=== PATIENT | male | born 1965 | race African-American/Black ===

== ENCOUNTER 2017-08-03 17:15 | Inpatient (IN) | payer OTHER ==
[2017-08-03 18:01] VITALS: BMI 23.0
--- NOTE | 2017-08-03 20:32 | HP ---
CIWA Score - CIWA Score Nausea/Vomitin Muscle Tremors: 4-Moderate,w/Arms Extend Anxiety: 4-Mod. Anxious/Guarded Agitation: 4-Moderately Restless Paroxysmal Sweats: 4-Forehead w/Sweat Beads Orientation: 3-Disoriented Date>2 days Tacttile Disturbances: 0-None Auditory Disturbances: 0-None Visual Disturbances: 0-None Headache: 3-Moderate CIWA-Ar Total Score: 25 Admission ROS BHS - HPI Chief Complaint: C/O WITHDRAWAL SX'S. SEEKING DETOX FROM ALCOHOL Allergies/Adverse Reactions: Allergies Allergy/AdvReac Type Severity Reaction Status Date / Time tomato Allergy Intermediate Rash Verified 08/03/17 19:43 No Known Drug Allergies Allergy Verified 08/03/17 19:43 History of Present Illness: 52 Y.O. MALE WITH HX/O POLYSUBSTANCE ABUSE HERE FOR ALCOHOL DETOX. CLIENT IS KNOWN TO THIS PROGRAM. SELF REFERRED. REPORTS LONGEST CLEAN TIME 2 YEARS. REPORTS HX/O BLACKING OUT BUT DENIES O.D., SEIZURES, SI/HI. PMHX: HTN PSYCH: BIPOLAR Exam Limitations: No Limitations - Ebola screening Have you traveled outside of the country in the last 21 days: No (N) Have you had contact with anyone from an Ebola affected area: No Have you been sick,other than usual withdrawal symptoms: No Do you have a fever: No - Review of Systems Constitutional: Chills, Loss of Appetite, Malaise, Night Sweats, Changes in sleep EENT: reports: No Symptoms Reported, Dental Problems Respiratory: reports: No Symptoms reported Cardiac: reports: No Symptoms Reported GI: reports: Diarrhea, Nausea, Poor Appetite, Vomiting, Abdominal cramping : reports: No Symptoms Reported Musculoskeletal: reports: No Symptoms Reported Integumentary: reports: No Symptoms Reported Neuro: reports: No Symptoms reported Endocrine: reports: No Symptoms Reported Hematology: reports: No Symptoms Reported Psychiatric: reports: Anxious, Depressed Other Systems: Reviewed and Negative Patient History - Patient Medical History Hx Anemia: No Hx Asthma: No Hx Chronic Obstructive Pulmonary Disease (COPD): No Hx Cancer: No Hx Cardiac Disorders: No Hx Congestive Heart Failure: No Hx Hypertension: Yes Hx Hypercholesterolemia: No Hx Pacemaker: No HX Cerebrovascular Accident: No Hx Seizures: No Hx Dementia: No Hx Diabetes: No Hx Gastrointestinal Disorders: No Hx Liver Disease: No Hx Genitourinary Disorders: No Hx Sexually Transmitted Disorders: No Hx Renal Disease (ESRD): No Hx Thyroid Disease: No Hx Human Immunodeficiency Virus (HIV): No (negative ) Hx Hepatitis C: No Hx Depression: Yes Hx Suicide Attempt: No Hx Bipolar Disorder: Yes (AND ANXIETY DISORDER) Hx Schizophrenia: No Other Medical History: DENIES - Patient Surgical History Past Surgical History: No Hx Neurologic Surgery: No Hx Cataract Extraction: No Hx Cardiac Surgery: No Hx Lung Surgery: No Hx Breast Surgery: No Hx Breast Biopsy: No Hx Abdominal Surgery: No Hx Appendectomy: No Hx Cholecystectomy: No Hx Genitourinary Surgery: No Hx Section: No Hx Orthopedic Surgery: No Other Surgical History: STITCHES ON BOTH ARMS FROM PUNCHING GLASS AT AGE 11 Anesthesia Reaction: No - PPD History Previous Implant?: Yes Documented Results: Negative w/proof Implanted On Prior [facility] Admission?: Yes Date: 03/26/15 Results: 0 mm PPD to be Administered?: Yes - Smoking Cessation Smoking history: Current every day smoker Have you smoked in the past 12 months: Yes Aproximately how many cigarettes per day: 4 Cigars Per Day: 0 Hx Chewing Tobacco Use: No Initiated information on smoking cessation: Yes 'Breaking Loose' booklet given: 08/03/17 - Substance & Tx. History Hx Alcohol Use: Yes Hx Substance Use: Yes Substance Use Type: Alcohol, Cocaine, Marijuana Hx Substance Use Treatment: Yes ([facility]) - Substances Abused Alcohol Route: Oral Frequency: Daily Amount used: 2 6PACKS BEER Age of first use: 22 Date of Last Use: 08/03/17 Marijuana/Hashish Route: Smoking Frequency: Daily Amount used: $300 Age of first use: 16 Date of Last Use: 08/03/17 Cocaine Route: SNIFF Frequency: Daily Amount used: $100 Age of first use: 18 Date of Last Use: 08/03/17 Family Disease History - Family Disease History Family Disease History: CA: Father, Other: Mother (PSYCH. DISORDER) Admission Physical Exam S - Vital Signs Vital Signs: Vital Signs - 24 hr 08/03/17 17:59 Temperature 96.9 F L Pulse Rate 77 Respiratory 18 Rate Blood Pressure 127/90 - Physical General Appearance: Yes: Appropriately Dressed, Mild Distress, Tremorous, Anxious HEENTM: Yes: EOMI, Normocephalic, Normal Voice, CHUY, Pharynx Normal, Other ( POOR DENTITION) Respiratory: Yes: Chest Non-Tender, Lungs Clear, Normal Breath Sounds, No Respiratory Distress, No Accessory Muscle Use Neck: Yes: No masses,lesions,Nodules, Supple, Trachea in good position Breast: Yes: Breast Exam Deferred Cardiology: Yes: Regular Rhythm, S1, S2, Tachycardia Abdominal: Yes: Normal Bowel Sounds, Non Tender, Flat, Soft Genitourinary: Yes: Burning (C/O) Back: Yes: Normal Inspection Musculoskeletal: Yes: full range of Motion, Gait Steady Extremities: Yes: Normal Capillary Refill, Normal Range of Motion, Non-Tender, Tremors Neurological: Yes: Alert, Disoriented (TO DATE) Integumentary: Yes: Normal Color, Warm, Other (SWEATY) Lymphatic: Yes: Within Normal Limits - Diagnostic (1) HTN (hypertension) Current Visit: Yes Status: Chronic Qualifiers: Hypertension type: essential hypertension Qualified Code(s): I10 - Essential (primary) hypertension (2) Methamphetamine abuse Current Visit: Yes Status: Chronic (3) Bipolar disorder Current Visit: Yes Status: Suspected (4) Alcohol dependence with uncomplicated withdrawal Current Visit: Yes Status: Acute (5) Cannabis dependence Current Visit: Yes Status: Chronic (6) Cocaine dependence Current Visit: Yes Status: Chronic Qualifiers: Substance use status: uncomplicated Qualified Code(s): F14.20 - Cocaine dependence, uncomplicated (7) Nicotine dependence Current Visit: Yes Status: Chronic Qualifiers: Nicotine product type: cigarettes Substance use status: uncomplicated Qualified Code(s): F17.210 - Nicotine dependence, cigarettes, uncomplicated Cleared for Admission [facility] - Detox or Rehab [facility] Level of Care: Medically Managed Detox Regimen/Protocol: Librium Claeared for Rehab Admission: No [facility] Breath Alcohol Content Breath Alcohol Content: 0 Urine Drug Screen - Results Drug Screen Negative: No Urine Drug Screen Results: THC-Marijuana, TOO-Cocaine, AMP-Amphetamines, MET- Methamphetamine
[2017-08-03] MEDS ORDERED: MELATONIN 5 MG TABLETS PO PRN (22:00)
[2017-08-03] MEDS ORDERED: MAGNESIUM HYDROX 2400MG/30ML ORAL SUSPENSION 30 ML CUP PO PRN (22:45)
[2017-08-03] MEDS ORDERED: guaiFENesin/D-METHORPHAN HB 10 ML UNIT-DOSE CUPS PO PRN (22:45)
[2017-08-03] MEDS ORDERED: LOPERAMIDE HCL 2 MG CAPSULE PO PRN (22:45)
[2017-08-03] MEDS ORDERED: IBUPROFEN 400 MG TABLET (FP) PO PRN (22:45)
[2017-08-03] MEDS ORDERED: NICOTINE POLACRILEX 2 MG GUM BC PRN (22:45)
[2017-08-03] MEDS ORDERED: MAGNESIUM CITRATE 300 ML BOTTLE PO PRN (22:45)
[2017-08-03] MEDS ORDERED: MAG HYDROX/AL HYDROX/SIMETH 30 ML UNIT-DOSE CUP PO PRN (22:45)
[2017-08-03] MEDS ORDERED: ACETAMINOPHEN 325 MG TABLET (FP) PO PRN (22:45)
[2017-08-03] MEDS ORDERED: P-EPHED 60MG/TRIPROLIDI 2.5MG TABLET PO PRN (22:45)
[2017-08-03] MEDS ORDERED: chlordiazePOXIDE HCL 25 MG CAPSULE PO PRN (22:45)
[2017-08-03] MEDS ORDERED: hydrOXYzine PAMOATE 50 MG CAPSULE (FP) PO PRN (22:45)
[2017-08-03] MEDS ORDERED: MENTHOL/PHENOL 1 EACH UD MM PRN (22:45)
[2017-08-03] MEDS: chlordiazePOXIDE HCL 25 MG CAPSULE PO SCH (23:08)
[2017-08-04] MEDS: chlordiazePOXIDE HCL 25 MG CAPSULE PO SCH ×4 (05:09→22:35)
--- NOTE | 2017-08-04 09:20 | CONSULT ---
[facility] Psychiatric Consult - Data Date of interview: 08/04/17 Admission source: [facility] Identifying data: This is 52 years old male, single, homeless, unemployed, on PA , with history of Bipolar Disorder and Psychiatric hospitalizations. Patient reports abusing Cocaine, Alcohol, Cannabis, mAmphetamins and Metamphetamins, Nicotine as well. Currently reports withdrawal symptoms and looking for detox. Substance Abuse History: Urine Drug Screen Results: THC-Marijuana, TOO-Cocaine, AMP-Amphetamines, MET-Methamphetamine. - Smoking Cessation. Smoking history: Current every day smoker. Have you smoked in the past 12 months: Yes. Aproximately how many cigarettes per day: 4. Cigars Per Day: 0. Hx Chewing Tobacco Use: No. Initiated information on smoking cessation: Yes. 'Breaking Loose' booklet given: 08/03/17. - Substance & Tx. History. Hx Alcohol Use: Yes. Hx Substance Use: Yes. Substance Use Type: Alcohol, Cocaine, Marijuana. Hx Substance Use Treatment: Yes ([facility]). - Substances Abused. Alcohol. Route: Oral. Frequency: Daily. Amount used: 2 6PACKS BEER. Age of first use: 22. Date of Last Use: 08/03/17. Marijuana/Hashish. Route: Smoking. Frequency: Daily. Amount used: $300. Age of first use: 16. Date of Last Use: 08/03/17. Cocaine. Route: SNIFF. Frequency: Daily. Amount used: $100. Age of first use: 18. Date of Last Use: 08/03/17 Medical History: HTN Psychiatric History: Patient reports history of Bipolar Disordewr with most recent psychiatric admission on abouit more then 5 years ago, reports currently stable on: Depakote 500mg po qhs, denies suicidal, homicidal history. Physical/Sexual Abuse/Trauma History: Denies Additional Comment: Urine Drug Screen Results: THC-Marijuana, TOO-Cocaine, AMP- Amphetamines, MET-Methamphetamine. Depakote 500mg po qhs Mental Status Exam - Mental Status Exam Alert and Oriented to: Person Cognitive Function: Fair Patient Appearance: Unkempt Mood: Sad Affect: Flat Patient Behavior: Guarded Speech Pattern: Delayed Voice Loudness: Mildly Soft/Quiet Thought Process: Goal Oriented Thought Disorder: Being Controlled Hallucinations: Denies Suicidal Ideation: Denies Homicidal Ideation: Denies Insight/Judgement: Fair Sleep: Difficulty falling asleep Appetite: Fair Muscle strength/Tone: Mild Hypotonicity Gait/Station: Shuffling Additional Comments: Depakote 500mg po qhs Psychiatric Findings - Problem List ([place] 1, 2,3) (1) Drug-induced mood disorder Current Visit: Yes Status: Acute (2) Alcohol dependence with uncomplicated withdrawal Current Visit: Yes Status: Acute (3) Cannabis dependence Current Visit: Yes Status: Chronic (4) Cocaine dependence Current Visit: Yes Status: Chronic Qualifiers: Substance use status: uncomplicated Qualified Code(s): F14.20 - Cocaine dependence, uncomplicated (5) Methamphetamine abuse Current Visit: Yes Status: Chronic (6) Nicotine dependence Current Visit: Yes Status: Chronic Qualifiers: Nicotine product type: cigarettes Substance use status: uncomplicated Qualified Code(s): F17.210 - Nicotine dependence, cigarettes, uncomplicated (7) Bipolar 1 disorder Current Visit: No Status: Acute - Initial Treatment Plan Initial Treatment Plan: Depakote 500mg po qhs. Depakote blood level
[2017-08-04 10:32] LABS: HEMATOCRIT 38.4 % (35.4-49); HEMOGLOBIN 12.7 GM/dL (11.7-16.9); MCH 29.9 pg (25.7-33.7); MEAN CELL VOLUME 90.5 fl (80-96); MEAN PLT VOLUME 8.5 fl (7.5-11.1); PLATELET COUNT 180 K/MM3 (134-434); RBC 4.24 M/mm3 (4.00-5.60); RDW 15.1 % (11.9-15.9); WHITE BLOOD COUNT 3.6 K/mm3 (4.0-10.0)
[2017-08-04 10:38] LABS: ALBUMIN 3.1 g/dl (3.4-5.0); ANION GAP 4 (8-16); BLOOD UREA NITROGEN 20 mg/dL (7-18); CALCIUM 8.2 mg/dL (8.5-10.1); CHLORIDE 107 mmol/L (98-107); CO2 29 mmol/L (21-32); GLUCOSE,RANDOM 100 mg/dL (74-106); POTASSIUM 4.3 mmol/L (3.5-5.1); SODIUM 140 mmol/L (136-145)
[2017-08-04 10:41] LABS: ALK PHOS 62 U/L (45-117); BILIRUBIN,TOTAL 0.3 mg/dL (0.2-1.0); CREATININE 1.3 mg/dL (0.7-1.3); SGOT/AST 24 U/L (15-37); SGPT/ALT 25 U/L (12-78); TOT PROT 6.7 g/dl (6.4-8.2)
[2017-08-04] MEDS: PRENATAL VITAMINS W/ FOLIC ACID TABLET (FP) PO SCH (11:12)
[2017-08-04] MEDS: amLODIPine BESYLATE 10 MG TABLET (FP) PO SCH (11:12)
[2017-08-04] MEDS: NICOTINE 14 MG/24 HOURS TOPICAL PATCH TD SCH (11:12)
[2017-08-04] MEDS: HYDROCHLOROTHIAZIDE 12.5 MG CAPSULE (FP) PO SCH (11:12)
--- NOTE | 2017-08-04 11:18 | PN ---
[facility] CIWA - CIWA Score Nausea/Vomitin-Mild Nausea/No Vomiting Muscle Tremors: 4-Moderate,w/Arms Extend Anxiety: 4-Mod. Anxious/Guarded Agitation: 4-Moderately Restless Paroxysmal Sweats: 1-Minimal Palms Moist Orientation: 1-Uncertain about Date Tacttile Disturbances: 1-Very Mild Itch/Numbness Auditory Disturbances: 0-None Visual Disturbances: 0-None Headache: 2-Mild CIWA-Ar Total Score: 18 BHS Progress Note (SOAP) Subjective: sweat tremor anxiety restlessness trouble sleep at night low energy Objective: 08/04/17 11:24 Vital Signs Temperature 97.1 F L 08/04/17 10:50 Pulse Rate 71 08/04/17 10:50 Respiratory Rate 16 08/04/17 10:50 Blood Pressure 122/76 08/04/17 10:50 O2 Sat by Pulse Oximetry (%) Laboratory Last Values WBC 3.6 K/mm3 (4.0-10.0) L 08/04/17 07:00 RBC 4.24 M/mm3 (4.00-5.60) 08/04/17 07:00 Hgb 12.7 GM/dL (11.7-16.9) 08/04/17 07:00 Hct 38.4 % (35.4-49) 08/04/17 07:00 MCV 90.5 fl (80-96) 08/04/17 07:00 MCH 29.9 pg (25.7-33.7) 08/04/17 07:00 MCHC 33.0 g/dl (32.0-35.9) 08/04/17 07:00 RDW 15.1 % (11.9-15.9) 08/04/17 07:00 Plt Count 180 K/MM3 (134-434) D 08/04/17 07:00 MPV 8.5 fl (7.5-11.1) 08/04/17 07:00 Sodium 140 mmol/L (136-145) 08/04/17 07:00 Potassium 4.3 mmol/L (3.5-5.1) 08/04/17 07:00 Chloride 107 mmol/L (98-107) 08/04/17 07:00 Carbon Dioxide 29 mmol/L (21-32) 08/04/17 07:00 Anion Gap 4 (8-16) L 08/04/17 07:00 BUN 20 mg/dL (7-18) H D 08/04/17 07:00 Creatinine 1.3 mg/dL (0.7-1.3) 08/04/17 07:00 Creat Clearance w eGFR 58.43 (>60) 08/04/17 07:00 Random Glucose 100 mg/dL (74-106) 08/04/17 07:00 Calcium 8.2 mg/dL (8.5-10.1) L 08/04/17 07:00 Total Bilirubin 0.3 mg/dL (0.2-1.0) D 08/04/17 07:00 AST 24 U/L (15-37) 08/04/17 07:00 ALT 25 U/L (12-78) 08/04/17 07:00 Alkaline Phosphatase 62 U/L (45-117) D 08/04/17 07:00 Total Protein 6.7 g/dl (6.4-8.2) 08/04/17 07:00 Albumin 3.1 g/dl (3.4-5.0) L 08/04/17 07:00 lab noted Assessment: 08/04/17 11:24 withdrawal sx Plan: continue detox
--- NOTE | 2017-08-04 11:26 | EKG ---
Test Reason : Blood Pressure : / mmHG Vent. Rate : 069 BPM Atrial Rate : 069 BPM P-R Int : 130 ms QRS Dur : 086 ms QT Int : 412 ms P-R-T Axes : 076 072 027 degrees QTc Int : 441 ms NORMAL SINUS RHYTHM NONSPECIFIC ST ABNORMALITY ABNORMAL ECG NO PREVIOUS ECGS AVAILABLE Confirmed by ANGELIA VASQUEZ MD ([id number]) on 08/04/2017 11:25:49 AM Referred By: Confirmed By:ANGELIA VASQUEZ MD
[2017-08-04] MEDS: THIAMINE HCL 100 MG TABLET (FP) PO SCH (22:35)
[2017-08-04] MEDS: DIVALPROEX SODIUM 500 MG TABLET E.C. PO SCH (22:35)
[2017-08-05] MEDS: chlordiazePOXIDE HCL 25 MG CAPSULE PO SCH ×3 (05:32→17:38)
[2017-08-05] MEDS: HYDROCHLOROTHIAZIDE 12.5 MG CAPSULE (FP) PO SCH (10:26)
[2017-08-05] MEDS: NICOTINE 14 MG/24 HOURS TOPICAL PATCH TD SCH (10:27)
[2017-08-05] MEDS: PRENATAL VITAMINS W/ FOLIC ACID TABLET (FP) PO SCH (10:27)
[2017-08-05] MEDS: amLODIPine BESYLATE 10 MG TABLET (FP) PO SCH (10:27)
--- NOTE | 2017-08-05 11:40 | PN ---
S CIWA - CIWA Score Nausea/Vomitin-Mild Nausea/No Vomiting Muscle Tremors: 4-Moderate,w/Arms Extend Anxiety: 3 Agitation: 3 Paroxysmal Sweats: 1-Minimal Palms Moist Orientation: 0-Oriented Tacttile Disturbances: 1-Very Mild Itch/Numbness Auditory Disturbances: 0-None Visual Disturbances: 0-None Headache: 0-None Present CIWA-Ar Total Score: 13 BHS Progress Note (SOAP) Subjective: tremor sweat trouble sleep at night anxiety restlessness Objective: 08/05/17 11:39 Vital Signs Temperature 98.2 F 08/05/17 09:14 Pulse Rate 90 08/05/17 09:14 Respiratory Rate 18 08/05/17 09:14 Blood Pressure 138/79 08/05/17 09:14 O2 Sat by Pulse Oximetry (%) Laboratory Last Values WBC 3.6 K/mm3 (4.0-10.0) L 08/04/17 07:00 RBC 4.24 M/mm3 (4.00-5.60) 08/04/17 07:00 Hgb 12.7 GM/dL (11.7-16.9) 08/04/17 07:00 Hct 38.4 % (35.4-49) 08/04/17 07:00 MCV 90.5 fl (80-96) 08/04/17 07:00 MCH 29.9 pg (25.7-33.7) 08/04/17 07:00 MCHC 33.0 g/dl (32.0-35.9) 08/04/17 07:00 RDW 15.1 % (11.9-15.9) 08/04/17 07:00 Plt Count 180 K/MM3 (134-434) D 08/04/17 07:00 MPV 8.5 fl (7.5-11.1) 08/04/17 07:00 Sodium 140 mmol/L (136-145) 08/04/17 07:00 Potassium 4.3 mmol/L (3.5-5.1) 08/04/17 07:00 Chloride 107 mmol/L (98-107) 08/04/17 07:00 Carbon Dioxide 29 mmol/L (21-32) 08/04/17 07:00 Anion Gap 4 (8-16) L 06/04/18 07:00 BUN 20 mg/dL (7-18) H D 08/04/17 07:00 Creatinine 1.3 mg/dL (0.7-1.3) 08/04/17 07:00 Creat Clearance w eGFR 58.43 (>60) 08/04/17 07:00 Random Glucose 100 mg/dL (74-106) 08/04/17 07:00 Calcium 8.2 mg/dL (8.5-10.1) L 08/04/17 07:00 Total Bilirubin 0.3 mg/dL (0.2-1.0) D 08/04/17 07:00 AST 24 U/L (15-37) 08/04/17 07:00 ALT 25 U/L (12-78) 08/04/17 07:00 Alkaline Phosphatase 62 U/L (45-117) D 08/04/17 07:00 Total Protein 6.7 g/dl (6.4-8.2) 08/04/17 07:00 Albumin 3.1 g/dl (3.4-5.0) L 08/04/17 07:00 RPR Titer Nonreactive (NONREACTIVE) 08/04/17 07:00 lab noted Assessment: 08/05/17 11:39 withdrawal sx Plan: continue detox
[2017-08-05] MEDS: DIVALPROEX SODIUM 500 MG TABLET E.C. PO SCH (22:30)
[2017-08-05] MEDS: chlordiazePOXIDE 5 MG CAPSULE PO SCH (22:31)
[2017-08-05] MEDS: THIAMINE HCL 100 MG TABLET (FP) PO SCH (22:33)
[2017-08-06] MEDS: chlordiazePOXIDE 5 MG CAPSULE PO SCH ×2 (05:30→10:37)
[2017-08-06] MEDS: PRENATAL VITAMINS W/ FOLIC ACID TABLET (FP) PO SCH (10:21)
[2017-08-06] MEDS: amLODIPine BESYLATE 10 MG TABLET (FP) PO SCH (10:21)
[2017-08-06] MEDS: HYDROCHLOROTHIAZIDE 12.5 MG CAPSULE (FP) PO SCH (10:21)
--- NOTE | 2017-08-06 10:30 | PN ---
BHS Progress Note (SOAP) Subjective: feeling better no tremor less sweat social with peers in day room Objective: 08/06/17 10:31 Vital Signs Temperature 97.8 F 08/06/17 06:27 Pulse Rate 71 08/06/17 06:27 Respiratory Rate 18 08/06/17 06:27 Blood Pressure 135/81 08/06/17 06:27 O2 Sat by Pulse Oximetry (%) Laboratory Last Values WBC 3.6 K/mm3 (4.0-10.0) L 08/04/17 07:00 RBC 4.24 M/mm3 (4.00-5.60) 08/04/17 07:00 Hgb 12.7 GM/dL (11.7-16.9) 08/04/17 07:00 Hct 38.4 % (35.4-49) 08/04/17 07:00 MCV 90.5 fl (80-96) 08/04/17 07:00 MCH 29.9 pg (25.7-33.7) 08/04/17 07:00 MCHC 33.0 g/dl (32.0-35.9) 08/04/17 07:00 RDW 15.1 % (11.9-15.9) 08/04/17 07:00 Plt Count 180 K/MM3 (134-434) D 08/04/17 07:00 MPV 8.5 fl (7.5-11.1) 08/04/17 07:00 Sodium 140 mmol/L (136-145) 08/04/17 07:00 Potassium 4.3 mmol/L (3.5-5.1) 08/04/17 07:00 Chloride 107 mmol/L (98-107) 08/04/17 07:00 Carbon Dioxide 29 mmol/L (21-32) 08/04/17 07:00 Anion Gap 4 (8-16) L 08/04/17 07:00 BUN 20 mg/dL (7-18) H D 08/04/17 07:00 Creatinine 1.3 mg/dL (0.7-1.3) 08/04/17 07:00 Creat Clearance w eGFR 58.43 (>60) 08/04/17 07:00 Random Glucose 100 mg/dL (74-106) 08/04/17 07:00 Calcium 8.2 mg/dL (8.5-10.1) L 08/04/17 07:00 Total Bilirubin 0.3 mg/dL (0.2-1.0) D 08/04/17 07:00 AST 24 U/L (15-37) 08/04/17 07:00 ALT 25 U/L (12-78) 08/04/17 07:00 Alkaline Phosphatase 62 U/L (45-117) D 08/04/17 07:00 Total Protein 6.7 g/dl (6.4-8.2) 08/04/17 07:00 Albumin 3.1 g/dl (3.4-5.0) L 08/04/17 07:00 Valproic Acid < 3.0 ug/ml (50-100) L 08/05/17 08:00 RPR Titer Nonreactive (NONREACTIVE) 08/04/17 07:00 lab noted Assessment: 08/06/17 10:32 mild withdrawal sx Plan: medically supervised detox
[2017-08-06] MEDS: NICOTINE 14 MG/24 HOURS TOPICAL PATCH TD SCH (10:37)
[2017-08-06 10:58] VITALS: BP 118/80; PULSE 77; TEMP 97.9
--- NOTE | 2017-08-06 12:40 | DS ---
[facility] Detox Discharge Summary Admission Date: 08/03/17 Discharge Date: 08/06/17 - History Present History: Alcohol Dependence - Physical Exam Results Vital Signs: Vital Signs Temperature 97.9 F 08/06/17 10:57 Pulse Rate 77 08/06/17 10:57 Respiratory Rate 16 08/06/17 10:57 Blood Pressure 118/80 08/06/17 10:57 O2 Sat by Pulse Oximetry (%) - Treatment Hospital Course: Detox Protocol Followed, Detoxed Safely, Responded well, Discharged Condition Good, Rehab Referral Accepted Patient has Accepted a Rehab Referral [facility]: [facility] - Medication Discharge Medications: Ambulatory Orders Divalproex [Depakote -] 500 mg PO DAILY 08/03/17 Hydrochlorothiazide [Hctz -] 12.5 mg PO DAILY 08/03/17 Divalproex [Depakote -] 500 mg PO HS #30 tablet.ec 08/04/17 Amlodipine Besylate 10 mg PO DAILY #30 tablet 08/06/17 - Diagnosis (1) Alcohol dependence with uncomplicated withdrawal Current Visit: Yes Status: Acute (2) HTN (hypertension) Current Visit: Yes Status: Chronic Qualifiers: Hypertension type: essential hypertension Qualified Code(s): I10 - Essential (primary) hypertension (3) Nicotine dependence Current Visit: Yes Status: Chronic Qualifiers: Nicotine product type: cigarettes Substance use status: in withdrawal Qualified Code(s): F17.213 - Nicotine dependence, cigarettes, with withdrawal (4) Bipolar 1 disorder Current Visit: Yes Status: Suspected - AMA Did Patient Leave Against Medical Advice: No
[2017-08-06] MEDS ORDERED: chlordiazePOXIDE HCL 10 MG CAPSULE PO SCH (23:00)
== END 2017-08-06 12:30 | disposition home or self-care (01) | DRG 774 ==
LOC: YASAS 17:15 → Y6N 20:43
PROVIDERS: ADMIT Surgery; ATTEND Surgery
PROC: HZ2ZZZZ Detoxification Services for Substance Abuse Treatment (ICD-10-PCS; principal; 2017-08-03)
DX: F10.230 Alcohol dependence with withdrawal, uncomplicated (principal); F14.20 Cocaine dependence, uncomplicated; F12.20 Cannabis dependence, uncomplicated; F15.10 Other stimulant abuse, uncomplicated; F17.213 Nicotine dependence, cigarettes, with withdrawal; F31.89 Other bipolar disorder; F19.24 Other psychoactive substance dependence with psychoactive substance-induced mood disorder; I10 Essential (primary) hypertension
CPT/HCPCS: 36415; 80053; 80164; 85027; 86593; 93005; 93010

== ENCOUNTER 2017-10-18 10:41 | Inpatient (IN) | payer OTHER ==
[2017-10-18 11:37] VITALS: BMI 23.0
--- NOTE | 2017-10-18 12:07 | HP ---
CIWA Score - CIWA Score Nausea/Vomitin-Mild Nausea/No Vomiting Muscle Tremors: 4-Moderate,w/Arms Extend Anxiety: 4-Mod. Anxious/Guarded Agitation: 1-Slight > Activity Paroxysmal Sweats: 1-Minimal Palms Moist Orientation: 0-Oriented Tacttile Disturbances: 1-Very Mild Itch/Numbness Auditory Disturbances: 1-Very Mild Visual Disturbances: 1-Very Mild Sensitivity Headache: 1-Very Mild CIWA-Ar Total Score: 15 Admission ROS BHS - HPI Chief Complaint: I want to get my life back on track, stop using, be more responsible Allergies/Adverse Reactions: Allergies Allergy/AdvReac Type Severity Reaction Status Date / Time tomato Allergy Intermediate Rash Verified 10/18/17 11:35 No Known Drug Allergies Allergy Verified 10/18/17 11:35 History of Present Illness: 52 yo gentleman here for detox from alcohol - denies seizures or black outs, one of several admissions for treatment. Also uses cocaine and marijuana. 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 Exam Limitations: Clinical Condition - Ebola screening Have you traveled outside of the country in the last 21 days: No (N) Have you had contact with anyone from an Ebola affected area: No Have you been sick,other than usual withdrawal symptoms: No Do you have a fever: No - Review of Systems Constitutional: Chills, Loss of Appetite, Night Sweats, Changes in sleep, Weakness EENT: reports: No Symptoms Reported Respiratory: reports: No Symptoms reported GI: reports: Nausea, Poor Appetite, Indigestion, Abdominal cramping : reports: Frequency Musculoskeletal: reports: Back Pain, Muscle Pain Integumentary: reports: Dryness Neuro: reports: Headache, Tremors Endocrine: reports: No Symptoms Reported Hematology: reports: No Symptoms Reported Psychiatric: reports: Judgement Intact, Mood/Affect Appropiate, Orientated x3, Anxious Other Systems: Reviewed and Negative Patient History - Patient Medical History Hx Anemia: No Hx Asthma: No Hx Chronic Obstructive Pulmonary Disease (COPD): No Hx Cancer: No Hx Cardiac Disorders: No Hx Congestive Heart Failure: No Hx Hypertension: Yes (NON-COMPLIANT WITH MEDICATIONS) Hx Hypercholesterolemia: No Hx Pacemaker: No HX Cerebrovascular Accident: No Hx Seizures: No Hx Dementia: No Hx Diabetes: No Hx Gastrointestinal Disorders: No Hx Liver Disease: No Hx Genitourinary Disorders: No Hx Sexually Transmitted Disorders: No Hx Renal Disease (ESRD): No Hx Thyroid Disease: No Hx Human Immunodeficiency Virus (HIV): No Hx Hepatitis C: No Hx Depression: Yes Hx Suicide Attempt: No Hx Bipolar Disorder: Yes (hospitalized 20 years ago) Hx Schizophrenia: No - Patient Surgical History Past Surgical History: No Hx Neurologic Surgery: No Hx Cataract Extraction: No Hx Cardiac Surgery: No Hx Lung Surgery: No Hx Breast Surgery: No Hx Breast Biopsy: No Hx Abdominal Surgery: No Hx Appendectomy: No Hx Cholecystectomy: No Hx Genitourinary Surgery: No Hx Section: No Hx Orthopedic Surgery: No Other Surgical History: STITCHES ON BOTH ARMS FROM PUNCHING GLASS AT AGE 11 Anesthesia Reaction: No - PPD History Previous Implant?: Yes Documented Results: Negative w/proof Implanted On Prior [facility] Admission?: Yes Date: 08/05/17 Results: 0 mm PPD to be Administered?: No - Reproductive History Patient is a Female of Child Bearing Age (11 -55 yrs old): No (male) - Smoking Cessation Smoking history: Current every day smoker Have you smoked in the past 12 months: Yes Aproximately how many cigarettes per day: 2 Cigars Per Day: 0 Hx Chewing Tobacco Use: No Initiated information on smoking cessation: Yes 'Breaking Loose' booklet given: 10/18/17 (give on floor) - Substance & Tx. History Hx Alcohol Use: Yes Hx Substance Use: Yes Substance Use Type: Alcohol, Cocaine, Marijuana Hx Substance Use Treatment: Yes (detox, rehab) - Substances Abused Alcohol Route: Oral Frequency: Daily Amount used: one 6 pack of beer (16 ounces), 2 pints of vodka Age of first use: 18 Date of Last Use: 10/17/17 Marijuana/Hashish Route: Smoking Frequency: Daily Amount used: $300 Age of first use: 11 Date of Last Use: 10/18/17 Cocaine Route: Inhalation Frequency: Daily Amount used: $400 Age of first use: 19 Date of Last Use: 10/17/17 Family Disease History - Family Disease History Family Disease History: CA: Father (, ), Other: Father, Mother (living, PSYCH. DISORDER), Brother (three - living - etoh), Sister (three - living) Admission Physical Exam BHS - Vital Signs Vital Signs: Vital Signs - 24 hr 10/18/17 11:34 Temperature 98.1 F Pulse Rate 73 Respiratory 16 Rate Blood Pressure 156/105 - Physical General Appearance: Yes: Nourished, Appropriately Dressed, Moderate Distress, Anxious HEENTM: Yes: EOMI, Hearing grossly Normal, Normocephalic, Normal Voice Respiratory: Yes: Normal Breath Sounds, No Respiratory Distress Neck: Yes: No masses,lesions,Nodules Breast: Yes: Breast Exam Deferred Cardiology: Yes: Regular Rhythm, Regular Rate Abdominal: Yes: Non Tender, Flat Genitourinary: Yes: Frequency Back: Yes: Normal Inspection Musculoskeletal: Yes: full range of Motion, Gait Steady Extremities: Yes: Normal Inspection, Normal Range of Motion, Non-Tender Neurological: Yes: Fully Oriented, Alert, Motor Strength 5/5, Normal Mood/Affect , Normal Response Integumentary: Yes: Normal Color, Dry, Warm, Other (scars both arms) Lymphatic: Yes: Within Normal Limits - Diagnostic (1) Alcohol dependence with uncomplicated withdrawal Current Visit: Yes Status: Acute (2) Cannabis dependence Current Visit: Yes Status: Chronic (3) Cocaine dependence Current Visit: Yes Status: Chronic Qualifiers: Substance use status: uncomplicated Qualified Code(s): F14.20 - Cocaine dependence, uncomplicated (4) HTN (hypertension) Current Visit: Yes Status: Chronic Qualifiers: Hypertension type: essential hypertension Qualified Code(s): I10 - Essential (primary) hypertension (5) Nicotine dependence Current Visit: Yes Status: Chronic Qualifiers: Nicotine product type: cigarettes Substance use status: in withdrawal Qualified Code(s): F17.213 - Nicotine dependence, cigarettes, with withdrawal Cleared for Admission [facility] - Detox or Rehab [facility] Level of Care: Medically Managed Detox Regimen/Protocol: Librium [facility] Breath Alcohol Content Breath Alcohol Content: 0 Urine Drug Screen - Results Urine Drug Screen Results: THC-Marijuana, TOO-Cocaine
[2017-10-18] MEDS ORDERED: IBUPROFEN 400 MG TABLET (FP) PO PRN (12:16)
[2017-10-18] MEDS ORDERED: MAG HYDROX/AL HYDROX/SIMETH 30 ML UNIT-DOSE CUP PO PRN (12:16)
[2017-10-18] MEDS ORDERED: ACETAMINOPHEN 325 MG TABLET (FP) PO PRN (12:16)
[2017-10-18] MEDS ORDERED: hydrOXYzine PAMOATE 25 MG CAPSULE (FP) PO PRN (12:16)
[2017-10-18] MEDS ORDERED: MAGNESIUM CITRATE 300 ML BOTTLE PO PRN (12:16)
[2017-10-18] MEDS ORDERED: P-EPHED 60MG/TRIPROLIDI 2.5MG TABLET PO PRN (12:16)
[2017-10-18] MEDS ORDERED: MAGNESIUM HYDROX 2400MG/30ML ORAL SUSPENSION 30 ML CUP PO PRN (12:16)
[2017-10-18] MEDS ORDERED: guaiFENesin/D-METHORPHAN HB 10 ML UNIT-DOSE CUPS PO PRN (12:16)
[2017-10-18] MEDS ORDERED: MENTHOL/PHENOL 1 EACH UD MM PRN (12:16)
[2017-10-18] MEDS ORDERED: chlordiazePOXIDE HCL 25 MG CAPSULE PO PRN (12:16)
[2017-10-18] MEDS ORDERED: LOPERAMIDE HCL 2 MG CAPSULE PO PRN (12:16)
[2017-10-18] MEDS ORDERED: chlordiazePOXIDE HCL 25 MG CAPSULE PO ONE (12:30)
[2017-10-18] MEDS: amLODIPine BESYLATE 10 MG TABLET (FP) PO SCH (15:07)
[2017-10-18] MEDS: HYDROCHLOROTHIAZIDE 12.5 MG CAPSULE (FP) PO SCH (15:07)
[2017-10-18] MEDS: chlordiazePOXIDE HCL 25 MG CAPSULE PO SCH ×2 (18:11→22:25)
[2017-10-18] MEDS ORDERED: MELATONIN 5 MG TABLETS PO PRN (22:00)
[2017-10-18] MEDS: THIAMINE HCL 100 MG TABLET (FP) PO SCH (22:25)
[2017-10-19] MEDS: chlordiazePOXIDE HCL 25 MG CAPSULE PO SCH ×4 (05:34→22:24)
--- NOTE | 2017-10-19 09:24 | CONSULT ---
[facility] Psychiatric Consult - Data Date of interview: 10/19/17 Admission source: Self-referred Identifying data: 52 y/ male single, unemployed, homeless on public assistance admitted to Detox for abusing ETOH, cocaine, marijuana Substance Abuse History: He has a long history of substance abuse since his teenage years, and numerous past Detox treatments, He experiences withdrawal symptoms, denies black out spells,or seizure disorder. Refer to addiction counselor note for more drug detailed history Medical History: HTN Psychiatric History: Diagnosed with Bipolarity , has had past pyschiatric admissions @ [facility], [facility]. He reports compliance with his medication Depakote and is emotionally stable at this time , denies suicidal or homicidal ideation, no report of mood swings Physical/Sexual Abuse/Trauma History: Denied Mental Status Exam - Mental Status Exam Alert and Oriented to: Place, Person Cognitive Function: Fair Patient Appearance: Unkempt Mood: Apathetic Affect: Appropriate Patient Behavior: Cooperative Speech Pattern: Delayed Voice Loudness: Mildly Soft/Quiet Thought Process: Intact Hallucinations: None Suicidal Ideation: None Homicidal Ideation: None Insight/Judgement: Poor Sleep: Fair Appetite: Good Muscle strength/Tone: Mild Hypotonicity Gait/Station: Normal Psychiatric Findings - Problem List ([place] 1, 2,3) (1) Alcohol dependence with uncomplicated withdrawal Current Visit: Yes Status: Acute (2) Cannabis dependence Current Visit: Yes Status: Chronic (3) Cocaine dependence Current Visit: Yes Status: Chronic Qualifiers: Substance use status: uncomplicated Qualified Code(s): F14.20 - Cocaine dependence, uncomplicated (4) HTN (hypertension) Current Visit: Yes Status: Chronic Qualifiers: Hypertension type: essential hypertension Qualified Code(s): I10 - Essential (primary) hypertension (5) Nicotine dependence Current Visit: Yes Status: Chronic Qualifiers: Nicotine product type: cigarettes Substance use status: in withdrawal Qualified Code(s): F17.213 - Nicotine dependence, cigarettes, with withdrawal (6) Drug-induced mood disorder Current Visit: No Status: Acute (7) Bipolar 1 disorder Current Visit: No Status: Suspected - Initial Treatment Plan Initial Treatment Plan: Continue Detox protocol. Psychoeducation. Monitor response. Depakote 500 mg po q hs. Blood VPA level
[2017-10-19 10:18] LABS: HEMATOCRIT 41.8 % (35.4-49); HEMOGLOBIN 13.9 GM/dL (11.7-16.9); MCH 29.6 pg (25.7-33.7); MCHC 33.2 g/dl (32.0-35.9); MEAN PLT VOLUME 8.9 fl (7.5-11.1); PLATELET COUNT 196 K/MM3 (134-434); RBC 4.69 M/mm3 (4.00-5.60); RDW 14.7 % (11.9-15.9); WHITE BLOOD COUNT 4.5 K/mm3 (4.0-10.0)
[2017-10-19 10:27] LABS: URINE APPEARANCE CLEAR; URINE BILIRUBIN NEGATIVE (<2.0 mg/dL); URINE COLOR YELLOW; URINE GLUCOSE (UA) NEGATIVE (NEGATIVE); URINE KETONE NEGATIVE (NEGATIVE); URINE LEUK ESTERASE NEGATIVE (NEGATIVE); URINE NITRITE NEGATIVE (NEGATIVE); URINE PROTEIN NEGATIVE (NEGATIVE)
[2017-10-19 10:28] LABS: CHLORIDE 102 mmol/L (98-107); POTASSIUM 3.8 mmol/L (3.5-5.1); SODIUM 141 mmol/L (136-145)
[2017-10-19 10:36] LABS: ALBUMIN 3.6 g/dl (3.4-5.0); ALK PHOS 60 U/L (45-117); ANION GAP 10 (8-16); BILIRUBIN,TOTAL 0.4 mg/dL (0.2-1.0); BLOOD UREA NITROGEN 14 mg/dL (7-18); CALCIUM 8.9 mg/dL (8.5-10.1); CO2 29 mmol/L (21-32); CREATININE 1.1 mg/dL (0.7-1.3); GLUCOSE,RANDOM 84 mg/dL (74-106); SGOT/AST 19 U/L (15-37); SGPT/ALT 31 U/L (12-78); TOT PROT 7.5 g/dl (6.4-8.2)
[2017-10-19] MEDS: amLODIPine BESYLATE 10 MG TABLET (FP) PO SCH (10:42)
[2017-10-19] MEDS: PRENATAL VITAMINS W/ FOLIC ACID TABLET (FP) PO SCH (10:42)
[2017-10-19] MEDS: HYDROCHLOROTHIAZIDE 12.5 MG CAPSULE (FP) PO SCH (10:42)
--- NOTE | 2017-10-19 12:56 | PN ---
S CIWA - CIWA Score Nausea/Vomitin Muscle Tremors: 4-Moderate,w/Arms Extend Anxiety: 4-Mod. Anxious/Guarded Agitation: 4-Moderately Restless Paroxysmal Sweats: 3 Orientation: 0-Oriented Tacttile Disturbances: 0-None Auditory Disturbances: 0-None Visual Disturbances: 0-None Headache: 0-None Present CIWA-Ar Total Score: 18 BHS Progress Note (SOAP) Subjective: Tremor, nausea, anxiety Objective: 10/19/17 12:54 Last Vital Signs Temp Pulse Resp BP Pulse Ox 98.3 F 72 18 147/83 10/19/17 09:25 10/19/17 09:25 10/19/17 09:25 10/19/17 09:25 Laboratory Tests 10/19/17 10/19/17 10/19/17 07:20 07:20 07:40 WBC 4.5 RBC 4.69 Hgb 13.9 Hct 41.8 MCV 89.0 MCH 29.6 MCHC 33.2 RDW 14.7 Plt Count 196 MPV 8.9 Sodium 141 Potassium 3.8 Chloride 102 Carbon Dioxide 29 Anion Gap 10 BUN 14 Creatinine 1.1 Creat Clearance w eGFR > 60 Random Glucose 84 Calcium 8.9 Total Bilirubin 0.4 AST 19 D ALT 31 D Alkaline Phosphatase 60 Total Protein 7.5 Albumin 3.6 Urine Color Yellow Urine Appearance Clear Urine pH 6.0 Ur Specific [place] 1.017 Urine Protein Negative Urine Glucose (UA) Negative Urine Ketones Negative Urine Blood Negative Urine Nitrite Negative Urine Bilirubin Negative Urine Urobilinogen 2.0 Ur Leukocyte Esterase Negative Labs reviewed Assessment: 10/19/17 12:55 Withdrawal symptoms Plan: Continue detox Encouraged PO water hydration
--- NOTE | 2017-10-19 19:23 | EKG ---
Test Reason : Blood Pressure : / mmHG Vent. Rate : 078 BPM Atrial Rate : 078 BPM P-R Int : 114 ms QRS Dur : 096 ms QT Int : 392 ms P-R-T Axes : 067 060 048 degrees QTc Int : 446 ms NORMAL SINUS RHYTHM NORMAL ECG Confirmed by MD RAINER, KAREN ([id number]) on 10/19/2017 7:23:06 PM Referred By: Confirmed By:KAREN SPEAR MD
[2017-10-19] MEDS ORDERED: DIVALPROEX SODIUM 500 MG TABLET E.C. PO SCH (22:00)
[2017-10-19] MEDS: THIAMINE HCL 100 MG TABLET (FP) PO SCH (22:24)
[2017-10-20] MEDS: chlordiazePOXIDE HCL 25 MG CAPSULE PO SCH ×2 (06:42→10:24)
[2017-10-20 09:27] VITALS: BP 148/91; PULSE 73; TEMP 98.6
[2017-10-20] MEDS: amLODIPine BESYLATE 10 MG TABLET (FP) PO SCH (10:23)
[2017-10-20] MEDS: PRENATAL VITAMINS W/ FOLIC ACID TABLET (FP) PO SCH (10:23)
[2017-10-20] MEDS: HYDROCHLOROTHIAZIDE 12.5 MG CAPSULE (FP) PO SCH (10:24)
--- NOTE | 2017-10-20 10:40 | PN ---
[facility] Progress Note Note: PT STATES HE WANTS HIS NORVASC ANY TIME HE WANTS AND DOES NOT WANT TO FOLLOW A SCHEDULED ROUTINE. EXPLAINED TO PT THE PROTOCOL FOR ADMINISTRATION OF NORVASC BUT HE IS UNRECEPTIVE. PT DECLINED TO CONTINUE WITH DETOX STATING "I HAVE MADE UP MY MIND TO LEAVE NOW. AND I DON'T WANT TO TAKE LIBRIUM, IT MAKES MY BLOOD PRESSURE GO UP. I DON'T WANT TO BE HERE. I DON'T WANT TO SPEAK TO ANY ONE". PT WAS LATER SPOKEN TO BY SUPERVISOR [employer] CAROL HARLEY AND COUNSELOR DEBORAH ANDRADE WELL THIS REPORTS ANALYST AND HIS NURSE, TERRA HELMS WITH UNSUCCESSFUL OUTCOME. PT REFUSED TO BE SPOKEN TO BY COUNSELOR RE:AFTERCARE. PT IS ALERT O X 3. Vital Signs - 24 hr 10/19/17 10/19/17 10/19/17 13:59 17:41 22:56 Temperature 99.1 F 98.1 F 98.7 F Pulse Rate 87 86 90 Respiratory 18 18 18 Rate Blood Pressure 143/93 133/85 129/77 10/20/17 10/20/17 10/20/17 00:30 03:30 06:01 Temperature 98.4 F Pulse Rate 75 Respiratory 18 18 18 Rate Blood Pressure 128/81 10/20/17 09:26 Temperature 98.6 F Pulse Rate 73 Respiratory 20 Rate Blood Pressure 148/91 Laboratory Tests 10/19/17 10/19/17 10/19/17 07:20 07:20 07:20 WBC 4.5 RBC 4.69 Hgb 13.9 Hct 41.8 MCV 89.0 MCH 29.6 MCHC 33.2 RDW 14.7 Plt Count 196 MPV 8.9 Sodium 141 Potassium 3.8 Chloride 102 Carbon Dioxide 29 Anion Gap 10 BUN 14 Creatinine 1.1 Creat Clearance w eGFR > 60 Random Glucose 84 Calcium 8.9 Total Bilirubin 0.4 AST 19 D ALT 31 D Alkaline Phosphatase 60 Total Protein 7.5 Albumin 3.6 Urine Color Urine Appearance Urine pH Ur Specific [place] Urine Protein Urine Glucose (UA) Urine Ketones Urine Blood Urine Nitrite Urine Bilirubin Urine Urobilinogen Ur Leukocyte Esterase RPR Titer HIV 1&2 Antibody Screen Negative HIV P24 Antigen Negative 10/19/17 10/19/17 07:20 07:40 WBC RBC Hgb Hct MCV MCH MCHC RDW Plt Count MPV Sodium Potassium Chloride Carbon Dioxide Anion Gap BUN Creatinine Creat Clearance w eGFR Random Glucose Calcium Total Bilirubin AST ALT Alkaline Phosphatase Total Protein Albumin Urine Color Yellow Urine Appearance Clear Urine pH 6.0 Ur Specific [place] 1.017 Urine Protein Negative Urine Glucose (UA) Negative Urine Ketones Negative Urine Blood Negative Urine Nitrite Negative Urine Bilirubin Negative Urine Urobilinogen 2.0 Ur Leukocyte Esterase Negative RPR Titer Nonreactive HIV 1&2 Antibody Screen HIV P24 Antigen NAD PLAN:PT LEFT AMA
--- NOTE | 2017-10-20 10:45 | DS ---
[facility] Detox Discharge Summary Admission Date: 10/18/17 Discharge Date: 10/20/17 - History Present History: Alcohol Dependence Additional Comments: PT DECLINED TO CONTINUE WITH DETOX AND LEFT AMA. DECLINED TO SPEAK TO PROVIDER RE: HIS PRIMARY CARE INFORMATION. PT STATES HAS OWN MEDS. Pertinent Past History: PLEASE SEE DX BELOW - Physical Exam Results Vital Signs: Vital Signs Temperature 98.6 F 10/20/17 09:26 Pulse Rate 73 10/20/17 09:26 Respiratory Rate 20 10/20/17 09:26 Blood Pressure 148/91 10/20/17 09:26 O2 Sat by Pulse Oximetry (%) Pertinent Admission Physical Exam Findings: WITHDRAWAL SX Laboratory Tests 10/19/17 10/19/17 10/19/17 07:20 07:20 07:20 WBC 4.5 RBC 4.69 Hgb 13.9 Hct 41.8 MCV 89.0 MCH 29.6 MCHC 33.2 RDW 14.7 Plt Count 196 MPV 8.9 Sodium 141 Potassium 3.8 Chloride 102 Carbon Dioxide 29 Anion Gap 10 BUN 14 Creatinine 1.1 Creat Clearance w eGFR > 60 Random Glucose 84 Calcium 8.9 Total Bilirubin 0.4 AST 19 D ALT 31 D Alkaline Phosphatase 60 Total Protein 7.5 Albumin 3.6 Urine Color Urine Appearance Urine pH Ur Specific [place] Urine Protein Urine Glucose (UA) Urine Ketones Urine Blood Urine Nitrite Urine Bilirubin Urine Urobilinogen Ur Leukocyte Esterase RPR Titer HIV 1&2 Antibody Screen Negative HIV P24 Antigen Negative 10/19/17 10/19/17 07:20 07:40 WBC RBC Hgb Hct MCV MCH MCHC RDW Plt Count MPV Sodium Potassium Chloride Carbon Dioxide Anion Gap BUN Creatinine Creat Clearance w eGFR Random Glucose Calcium Total Bilirubin AST ALT Alkaline Phosphatase Total Protein Albumin Urine Color Yellow Urine Appearance Clear Urine pH 6.0 Ur Specific [place] 1.017 Urine Protein Negative Urine Glucose (UA) Negative Urine Ketones Negative Urine Blood Negative Urine Nitrite Negative Urine Bilirubin Negative Urine Urobilinogen 2.0 Ur Leukocyte Esterase Negative RPR Titer Nonreactive HIV 1&2 Antibody Screen HIV P24 Antigen - Treatment Hospital Course: Discharged Condition Good - Medication Discharge Medications: Ambulatory Orders Hydrochlorothiazide [Hctz -] 12.5 mg PO DAILY 08/03/17 Divalproex [Depakote -] 500 mg PO HS #30 tablet.ec 08/04/17 Amlodipine Besylate 10 mg PO DAILY #30 tablet 08/06/17 - AMA Did Patient Leave Against Medical Advice: Yes (AMRomi)
[2017-10-20] MEDS ORDERED: chlordiazePOXIDE 5 MG CAPSULE PO SCH (17:00)
[2017-10-21] MEDS ORDERED: chlordiazePOXIDE HCL 10 MG CAPSULE PO SCH (17:00)
== END 2017-10-20 10:30 | disposition left against medical advice (07) | DRG 770 ==
LOC: YASAS 10:41 → Y3N 12:17
PROVIDERS: ADMIT Surgery; ATTEND Surgery
PROC: HZ2ZZZZ Detoxification Services for Substance Abuse Treatment (ICD-10-PCS; principal; 2017-10-18)
DX: F10.230 Alcohol dependence with withdrawal, uncomplicated (principal); F14.20 Cocaine dependence, uncomplicated; F12.20 Cannabis dependence, uncomplicated; F17.213 Nicotine dependence, cigarettes, with withdrawal; F19.24 Other psychoactive substance dependence with psychoactive substance-induced mood disorder; F31.89 Other bipolar disorder; I10 Essential (primary) hypertension; Z91.14 Patient's other noncompliance with medication regimen
CPT/HCPCS: 36415; 80053; 81003; 85027; 86593; 87389; 93005; 93010

== ENCOUNTER 2017-11-25 13:10 | Inpatient (IN) | payer OTHER ==
[2017-11-25 13:49] VITALS: BMI 21.9
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
[2017-11-25] MEDS ORDERED: MENTHOL/PHENOL 1 EACH UD MM PRN (14:55)
[2017-11-25] MEDS ORDERED: MAGNESIUM HYDROX 2400MG/30ML ORAL SUSPENSION 30 ML CUP PO PRN (14:55)
[2017-11-25] MEDS ORDERED: IBUPROFEN 400 MG TABLET (FP) PO PRN (14:55)
[2017-11-25] MEDS ORDERED: LOPERAMIDE HCL 2 MG CAPSULE PO PRN (14:55)
[2017-11-25] MEDS ORDERED: P-EPHED 60MG/TRIPROLIDI 2.5MG TABLET PO PRN (14:55)
[2017-11-25] MEDS ORDERED: MAG HYDROX/AL HYDROX/SIMETH 30 ML UNIT-DOSE CUP PO PRN (14:55)
[2017-11-25] MEDS ORDERED: guaiFENesin/D-METHORPHAN HB 10 ML UNIT-DOSE CUPS PO PRN (14:55)
[2017-11-25] MEDS ORDERED: chlordiazePOXIDE HCL 25 MG CAPSULE PO PRN (14:55)
[2017-11-25] MEDS ORDERED: ACETAMINOPHEN 325 MG TABLET (FP) PO PRN (14:55)
[2017-11-25] MEDS ORDERED: MAGNESIUM CITRATE 300 ML BOTTLE PO PRN (14:55)
[2017-11-25] MEDS: amLODIPine BESYLATE 10 MG TABLET (FP) PO SCH (19:50)
[2017-11-25] MEDS ORDERED: MELATONIN 5 MG TABLETS PO PRN (22:00)
[2017-11-25] MEDS: chlordiazePOXIDE HCL 25 MG CAPSULE PO SCH (23:25)
[2017-11-25] MEDS: THIAMINE HCL 100 MG TABLET (FP) PO SCH (23:25)
[2017-11-26 02:25] LABS: URINE APPEARANCE CLEAR; URINE BILIRUBIN NEGATIVE (<2.0 mg/dL); URINE COLOR YELLOW; URINE GLUCOSE (UA) NEGATIVE (NEGATIVE); URINE KETONE NEGATIVE (NEGATIVE); URINE LEUK ESTERASE NEGATIVE (NEGATIVE); URINE NITRITE NEGATIVE (NEGATIVE); URINE PROTEIN NEGATIVE (NEGATIVE); URINE UROBILINOGEN NEGATIVE mg/dL (0.2-1.0)
[2017-11-26] MEDS: chlordiazePOXIDE HCL 25 MG CAPSULE PO SCH ×4 (06:08→22:30)
[2017-11-26 09:59] LABS: HEMATOCRIT 43.8 % (35.4-49); HEMOGLOBIN 14.1 GM/dL (11.7-16.9); MCH 28.5 pg (25.7-33.7); MCHC 32.1 g/dl (32.0-35.9); MEAN CELL VOLUME 88.8 fl (80-96); MEAN PLT VOLUME 8.9 fl (7.5-11.1); PLATELET COUNT 222 K/MM3 (134-434); RBC 4.93 M/mm3 (4.00-5.60); RDW 15.4 % (11.9-15.9); WHITE BLOOD COUNT 4.4 K/mm3 (4.0-10.0)
[2017-11-26 10:12] LABS: ALBUMIN 3.5 g/dl (3.4-5.0); ALK PHOS 71 U/L (45-117); ANION GAP 8 MMOL/L (8-16); BILIRUBIN,TOTAL 0.3 mg/dL (0.2-1); BLOOD UREA NITROGEN 9 mg/dL (7-18); CALCIUM 9.6 mg/dL (8.5-10.1); CHLORIDE 104 mmol/L (98-107); CO2 27 mmol/L (21-32); GLUCOSE,RANDOM 79 mg/dL (74-106); POTASSIUM 4.4 mmol/L (3.5-5.1); SGOT/AST 18 U/L (15-37); SGPT/ALT 23 U/L (13-61); SODIUM 139 mmol/L (136-145); TOT PROT 7.9 g/dl (6.4-8.2)
[2017-11-26] MEDS: amLODIPine BESYLATE 10 MG TABLET (FP) PO SCH (10:40)
[2017-11-26] MEDS: PRENATAL VITAMINS W/ FOLIC ACID TABLET (FP) PO SCH (10:40)
--- NOTE | 2017-11-26 11:44 | EKG ---
Test Reason : Blood Pressure : / mmHG Vent. Rate : 070 BPM Atrial Rate : 070 BPM P-R Int : 138 ms QRS Dur : 088 ms QT Int : 410 ms P-R-T Axes : 054 059 050 degrees QTc Int : 442 ms NORMAL SINUS RHYTHM MODERATE VOLTAGE CRITERIA FOR LVH, MAY BE NORMAL VARIANT BORDERLINE ECG WHEN COMPARED WITH ECG OF 18-OCT-2017 14:39, NO SIGNIFICANT CHANGE WAS FOUND Confirmed by BLADIMIR BRANDT, GAYLE ([id number]) on 11/26/2017 11:44:22 AM Referred By: Confirmed By:GAYLE GARRISON MD
--- NOTE | 2017-11-26 12:50 | PN ---
[facility] CIWA - CIWA Score Nausea/Vomitin-Mild Nausea/No Vomiting Muscle Tremors: 4-Moderate,w/Arms Extend Anxiety: 4-Mod. Anxious/Guarded Agitation: 4-Moderately Restless Paroxysmal Sweats: 1-Minimal Palms Moist Orientation: 1-Uncertain about Date Tacttile Disturbances: 1-Very Mild Itch/Numbness Auditory Disturbances: 0-None Visual Disturbances: 0-None Headache: 1-Very Mild CIWA-Ar Total Score: 17 BHS Progress Note (SOAP) Subjective: sweat tremor diarrhea headache anxiety restlessness Objective: 11/26/17 12:49 Vital Signs Temperature 98.2 F 11/26/17 09:31 Pulse Rate 81 11/26/17 09:31 Respiratory Rate 18 11/26/17 09:31 Blood Pressure 148/92 11/26/17 09:31 O2 Sat by Pulse Oximetry (%) Laboratory Last Values WBC 4.4 K/mm3 (4.0-10.0) 11/26/17 07:30 RBC 4.93 M/mm3 (4.00-5.60) 11/26/17 07:30 Hgb 14.1 GM/dL (11.7-16.9) 11/26/17 07:30 Hct 43.8 % (35.4-49) 11/26/17 07:30 MCV 88.8 fl (80-96) 11/26/17 07:30 MCH 28.5 pg (25.7-33.7) 11/26/17 07:30 MCHC 32.1 g/dl (32.0-35.9) 11/26/17 07:30 RDW 15.4 % (11.9-15.9) 11/26/17 07:30 Plt Count 222 K/MM3 (134-434) 11/26/17 07:30 MPV 8.9 fl (7.5-11.1) 11/26/17 07:30 Sodium 139 mmol/L (136-145) 11/26/17 07:30 Potassium 4.4 mmol/L (3.5-5.1) 11/26/17 07:30 Chloride 104 mmol/L (98-107) 11/26/17 07:30 Carbon Dioxide 27 mmol/L (21-32) 11/26/17 07:30 Anion Gap 8 MMOL/L (8-16) 11/26/17 07:30 BUN 9 mg/dL (7-18) 11/26/17 07:30 Creatinine 1.0 mg/dL (0.55-1.3) 11/26/17 07:30 Creat Clearance w eGFR > 60 (>60) 11/26/17 07:30 Random Glucose 79 mg/dL (74-106) 11/26/17 07:30 Calcium 9.6 mg/dL (8.5-10.1) 11/26/17 07:30 Total Bilirubin 0.3 mg/dL (0.2-1) 11/26/17 07:30 AST 18 U/L (15-37) 11/26/17 07:30 ALT 23 U/L (13-61) 11/26/17 07:30 Alkaline Phosphatase 71 U/L (45-117) 11/26/17 07:30 Total Protein 7.9 g/dl (6.4-8.2) 11/26/17 07:30 Albumin 3.5 g/dl (3.4-5.0) 11/26/17 07:30 Urine Color Yellow 11/25/17 23:12 Urine Appearance Clear 11/25/17 23:12 Urine pH 8.0 (5.0-8.0) D 11/25/17 23:12 Ur Specific [place] 1.015 (1.001-1.035) 11/25/17 23:12 Urine Protein Negative (NEGATIVE) 11/25/17 23:12 Urine Glucose (UA) Negative (NEGATIVE) 11/25/17 23:12 Urine Ketones Negative (NEGATIVE) 11/25/17 23:12 Urine Blood Negative (NEGATIVE) 11/25/17 23:12 Urine Nitrite Negative (NEGATIVE) 11/25/17 23:12 Urine Bilirubin Negative (<2.0 mg/dL) 11/25/17 23:12 Urine Urobilinogen Negative mg/dL (0.2-1.0) 11/25/17 23:12 Ur Leukocyte Esterase Negative (NEGATIVE) 11/25/17 23:12 RPR Titer Nonreactive (NONREACTIVE) 11/26/17 07:30 lab noted Assessment: 11/26/17 12:50 alcohol and benzo withdrawal sx Plan: continue detox
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
[2017-11-26] MEDS ORDERED: DIVALPROEX SODIUM 500 MG TABLET E.C. PO SCH (22:00)
[2017-11-26] MEDS: THIAMINE HCL 100 MG TABLET (FP) PO SCH (22:30)
[2017-11-27] MEDS: chlordiazePOXIDE HCL 25 MG CAPSULE PO SCH ×2 (05:42→10:19)
[2017-11-27 08:57] VITALS: BP 136/92; PULSE 94; TEMP 98.1
--- NOTE | 2017-11-27 09:54 | PN ---
[facility] Progress Note Note: Vital Signs Temperature 98.1 F 11/27/17 08:57 Pulse Rate 94 H 11/27/17 08:57 Respiratory Rate 18 11/27/17 08:57 Blood Pressure 136/92 11/27/17 08:57 O2 Sat by Pulse Oximetry (%) Patient insist on leaving AMA, although advised on the importance to continue treatment. As per patient, he wants to leave because there are currently feels that no rehab beds are available, however, his counselor has been working with him to connect him a facility. Patient refuse to stay. Patient advised on the risk of interrupting treatment which include relapse or even . If worsening symptoms patient to go to the ED.
--- NOTE | 2017-11-27 10:11 | DS ---
[facility] Detox Discharge Summary Admission Date: 11/25/17 Discharge Date: 11/27/17 - History Present History: Alcohol Dependence, Cannabis Dependence Additional Comments: Patient ins table condition. Patient to follow up with primary care provider. If worsening symptoms are present patient to follow with the ED - Physical Exam Results Vital Signs: Vital Signs Temperature 98.1 F 11/27/17 08:57 Pulse Rate 94 H 11/27/17 08:57 Respiratory Rate 18 11/27/17 08:57 Blood Pressure 136/92 11/27/17 08:57 O2 Sat by Pulse Oximetry (%) Pertinent Admission Physical Exam Findings: Vital Signs Temperature 98.1 F 11/27/17 08:57 Pulse Rate 94 H 11/27/17 08:57 Respiratory Rate 18 11/27/17 08:57 Blood Pressure 136/92 11/27/17 08:57 O2 Sat by Pulse Oximetry (%) Laboratory Last Values WBC 4.4 K/mm3 (4.0-10.0) 11/26/17 07:30 RBC 4.93 M/mm3 (4.00-5.60) 11/26/17 07:30 Hgb 14.1 GM/dL (11.7-16.9) 11/26/17 07:30 Hct 43.8 % (35.4-49) 11/26/17 07:30 MCV 88.8 fl (80-96) 11/26/17 07:30 MCH 28.5 pg (25.7-33.7) 11/26/17 07:30 MCHC 32.1 g/dl (32.0-35.9) 11/26/17 07:30 RDW 15.4 % (11.9-15.9) 11/26/17 07:30 Plt Count 222 K/MM3 (134-434) 11/26/17 07:30 MPV 8.9 fl (7.5-11.1) 11/26/17 07:30 Sodium 139 mmol/L (136-145) 11/26/17 07:30 Potassium 4.4 mmol/L (3.5-5.1) 11/26/17 07:30 Chloride 104 mmol/L (98-107) 11/26/17 07:30 Carbon Dioxide 27 mmol/L (21-32) 11/26/17 07:30 Anion Gap 8 MMOL/L (8-16) 11/26/17 07:30 BUN 9 mg/dL (7-18) 11/26/17 07:30 Creatinine 1.0 mg/dL (0.55-1.3) 11/26/17 07:30 Creat Clearance w eGFR > 60 (>60) 11/26/17 07:30 Random Glucose 79 mg/dL (74-106) 11/26/17 07:30 Calcium 9.6 mg/dL (8.5-10.1) 11/26/17 07:30 Total Bilirubin 0.3 mg/dL (0.2-1) 11/26/17 07:30 AST 18 U/L (15-37) 11/26/17 07:30 ALT 23 U/L (13-61) 11/26/17 07:30 Alkaline Phosphatase 71 U/L (45-117) 11/26/17 07:30 Total Protein 7.9 g/dl (6.4-8.2) 11/26/17 07:30 Albumin 3.5 g/dl (3.4-5.0) 11/26/17 07:30 Urine Color Yellow 11/25/17 23:12 Urine Appearance Clear 11/25/17 23:12 Urine pH 8.0 (5.0-8.0) D 11/25/17 23:12 Ur Specific [place] 1.015 (1.001-1.035) 11/25/17 23:12 Urine Protein Negative (NEGATIVE) 11/25/17 23:12 Urine Glucose (UA) Negative (NEGATIVE) 11/25/17 23:12 Urine Ketones Negative (NEGATIVE) 11/25/17 23:12 Urine Blood Negative (NEGATIVE) 11/25/17 23:12 Urine Nitrite Negative (NEGATIVE) 11/25/17 23:12 Urine Bilirubin Negative (<2.0 mg/dL) 11/25/17 23:12 Urine Urobilinogen Negative mg/dL (0.2-1.0) 11/25/17 23:12 Ur Leukocyte Esterase Negative (NEGATIVE) 11/25/17 23:12 Valproic Acid < 3.0 ug/ml (50-100) L 11/27/17 06:00 RPR Titer Nonreactive (NONREACTIVE) 11/26/17 07:30 - Medication Discharge Medications: Ambulatory Orders Hydrochlorothiazide [Hctz -] 12.5 mg PO DAILY 08/03/17 Divalproex [Depakote -] 500 mg PO HS #30 tablet.ec 08/04/17 Amlodipine Besylate 10 mg PO DAILY #30 tablet 08/06/17 Amlodipine Besylate [Norvasc -] 10 mg PO DAILY #30 tablet 11/27/17 - Diagnosis (1) Alcohol dependence with uncomplicated withdrawal Status: Acute (2) Cannabis dependence Status: Chronic (3) Cocaine dependence Status: Chronic Qualifiers: Substance use status: uncomplicated Qualified Code(s): F14.20 - Cocaine dependence, uncomplicated (4) HTN (hypertension) Status: Chronic Qualifiers: Hypertension type: essential hypertension Qualified Code(s): I10 - Essential (primary) hypertension (5) Nicotine dependence Status: Chronic Qualifiers: Nicotine product type: cigarettes Substance use status: in withdrawal Qualified Code(s): F17.213 - Nicotine dependence, cigarettes, with withdrawal - AMA Did Patient Leave Against Medical Advice: Yes
[2017-11-27] MEDS: amLODIPine BESYLATE 10 MG TABLET (FP) PO SCH (10:18)
[2017-11-27] MEDS: PRENATAL VITAMINS W/ FOLIC ACID TABLET (FP) PO SCH (10:18)
[2017-11-27] MEDS ORDERED: chlordiazePOXIDE 5 MG CAPSULE PO SCH (23:00)
[2017-11-28] MEDS ORDERED: chlordiazePOXIDE HCL 10 MG CAPSULE PO SCH (23:00)
== END 2017-11-27 10:14 | disposition left against medical advice (07) | DRG 770 ==
LOC: YASAS 13:10 → Y6N 17:42
PROC: HZ2ZZZZ Detoxification Services for Substance Abuse Treatment (ICD-10-PCS; principal; 2017-11-25)
DX: F10.230 Alcohol dependence with withdrawal, uncomplicated (principal); F14.20 Cocaine dependence, uncomplicated; F12.20 Cannabis dependence, uncomplicated; F17.210 Nicotine dependence, cigarettes, uncomplicated; F31.9 Bipolar disorder, unspecified; I10 Essential (primary) hypertension
CPT/HCPCS: 36415; 80053; 80164; 81003; 85027; 86593; 93005; 93010